=== PATIENT | female | born 1955 | race Two or more races ===

== ENCOUNTER 2021-11-21 18:12 | Emergency (ER) | payer OTHER ==
[~2021-11-21] VITALS: Ht 152.4 cm; Wt 63.5 kg
[2021-11-21 18:27] VITALS: BP 137/69
--- NOTE | 2021-11-21 19:01 | NUR ---
Patient discharged to home in stable condition. Written and verbal after care instructions given. Patient verbalizes understanding of instruction.
--- NOTE | 2021-11-21 19:01 | NUR ---
Patient discharged to home in stable condition. Written and verbal after care instructions given. Patient verbalizes understanding of instruction.
== END 2021-11-21 19:01 | disposition home or self-care (01) ==
LOC: ER 18:15
DX: U07.1 COVID-19 (principal)